=== PATIENT | male | born 1980 | race Caucasian/White ===

== ENCOUNTER 2018-03-31 20:18 | Emergency (ER) | payer MEDICAID, OTHER ==
[2018-03-31] MEDS: DIPHTH/TET/ACEL PERTUSS (ADULT) 0.5 ML VIAL IM* (23:00)
== END 2018-03-31 23:04 | disposition home or self-care (01) ==
LOC: FTE 20:18
DX: S91.332A Puncture wound without foreign body, left foot, initial encounter (principal); F17.210 Nicotine dependence, cigarettes, uncomplicated; W45.0XXA Nail entering through skin, initial encounter; Y92.9 Unspecified place or not applicable; Z23 Encounter for immunization
CPT/HCPCS: 90471; 90715; 99283-25

== ENCOUNTER 2018-04-08 23:39 | Emergency (ER) | payer MEDICAID ==
[2018-04-09] MEDS: NAPROXEN 500 MG TAB PO (04:05)
== END 2018-04-09 05:12 | disposition home or self-care (01) ==
LOC: FTE 23:39
DX: M10.9 Gout, unspecified (principal); F17.210 Nicotine dependence, cigarettes, uncomplicated
CPT/HCPCS: 99283; Z7502